=== PATIENT | male | born 1945 | race Caucasian/White ===

== ENCOUNTER 2020-06-20 20:49 | Inpatient (IN) | payer MEDICARE ==
[~2020-06-20] VITALS: Ht 180.3 cm; Wt 66.7 kg
[2020-06-20 21:24] LABS: HEMOGLOBIN 14.1 gm/dl (14.0-17.5); RED BLOOD COUNT 4.53 M/UL (4.20-5.50); WHITE BLOOD COUNT 15.1 K/UL (4.5-11.0)
[2020-06-20 21:39] LABS: BUN/CREATININE RATIO 13 (0-10)
[2020-06-21] MEDS ORDERED: CRESTOR 10 MG T10 MG PO
[2020-06-21] MEDS ORDERED: OXYCODON-ACETA1 EAC1 PO
--- NOTE | 2020-06-21 01:40 | NUR ---
0140- CRITICAL CE RECIEVED, PATIENT POST CARDIAC INTERVENTION.
[2020-06-21 06:44] LABS: RED BLOOD COUNT 4.26 M/UL (4.20-5.50); WHITE BLOOD COUNT 14.3 K/UL (4.5-11.0)
[2020-06-21 07:26] LABS: BUN/CREATININE RATIO 14 (0-10)
[2020-06-22] MEDS ORDERED: NITROGLYCERIN0.4 MG SL (13:02)
[2020-06-22] MEDS ORDERED: ASPIRIN EC81 MG PO (13:02)
[2020-06-22] MEDS ORDERED: CLOPIDOGREL75 MG PO (13:02)
[2020-06-22] MEDS ORDERED: CARVEDILOL6.25 MG PO (13:02)
== END 2020-06-22 14:36 | disposition home or self-care (01) | DRG 247 ==
LOC: ER1 20:49 → CDU 21:10 → CCU 21:10 → CDU 21:50 → CCU 06-21 00:34
PROVIDERS: Preventive Medicine Occupational Medicine; Registered Nurse; ADMIT Internal Medicine Interventional Cardiology
PROC: 027034Z Dilation of Coronary Artery, One Artery with Drug-eluting Intraluminal Device, Percutaneous Approach (ICD-10-PCS; principal; 2020-06-20)
PROC: 4A023N7 Measurement of Cardiac Sampling and Pressure, Left Heart, Percutaneous Approach (ICD-10-PCS; 2020-06-20)
PROC: B2111ZZ Fluoroscopy of Multiple Coronary Arteries using Low Osmolar Contrast (ICD-10-PCS; 2020-06-20)
PROC: B2151ZZ Fluoroscopy of Left Heart using Low Osmolar Contrast (ICD-10-PCS; 2020-06-20)
PROC: 4A0335C Measurement of Arterial Flow, Coronary, Percutaneous Approach (ICD-10-PCS; 2020-06-20)
DX: I21.09 ST elevation (STEMI) myocardial infarction involving other coronary artery of anterior wall (principal); I47.2 Ventricular tachycardia; I25.119 Atherosclerotic heart disease of native coronary artery with unspecified angina pectoris; E78.5 Hyperlipidemia, unspecified; F17.210 Nicotine dependence, cigarettes, uncomplicated; Z20.822 Contact with and (suspected) exposure to COVID-19; Z79.899 Other long term (current) drug therapy
CPT/HCPCS: 36415; 71045; 80048; 80053; 82550; 82553; 83735; 83874; 84484; 85025; 85027; 85347; 85610; 85730; 87635; 93005; 96374; 96375; 96376; 99152; 99153; 99285; C1725; C1760; C1769; C1874; C1887; J1644; J2270; J2405; J7040